=== PATIENT | female | born 1975 | race Caucasian/White ===

== ENCOUNTER 2024-12-24 03:30 | Inpatient (IN) | payer BC ==
[2024-12-24 04:31] LABS: #Basophils 0.06 10x3/uL (0.0-0.2); #Eosinophils 0.21 10x3/uL (0.0-0.7); #Monocytes 0.55 10x3/uL (0.11-0.59); #Neutrophils 3.21 10x3/uL (1.40-6.50); %Basophils 0.8 % (0.0-1.0); %Eosinophils 2.9 % (0.0-10.0); %Lymphocytes 43.1 % (21.0-51.0); %Monocytes 7.7 % (0.0-10.0); %Neutrophils 45.1 % (42.0-75.0); Hematocrit 39.1 % (36.0-47.0); Hemoglobin 12.7 g/dL (12.0-16.0); Mean Corpuscular Hemoglobin 28.1 pg (27.0-31.0); Mean Corpuscular Volume 86.5 fL (78.0-98.0); Platelet Count 366 10x3/uL (130-400); Red Blood Cell (RBC) Count 4.52 mill/uL (4.20-5.40); White Blood Cell (WBC) Count 7.14 10x3/uL (4.8-10.8)
[2024-12-24 04:39] LABS: ALT (SGPT) 45 U/L (Less than 34); AST (SGOT) 27 U/L (11-34); Albumin 4.1 g/dL (3.1-4.5); Alkaline Phosphatase 57 U/L (40-110); Anion Gap 13 mmol/L (10-20); BUN (Urea Nitrogen) 10 mg/dL (7.0-18.7); Bilirubin, Total 0.3 mg/dL (0.3-1.2); Calc. Creatinine Clearance 0 mL/min (70-130); Calcium 9.3 mg/dL (7.8-10.44); Carbon Dioxide 20 mmol/L (22-29); Chloride 110 mmol/L (98-107); Globulin 3.3 g/dL (2.4-3.5); Glucose 84 mg/dL (70-105); Lipase 68 U/L (8-78); Potassium 4.1 mmol/L (3.5-5.1); Sodium 139 mmol/L (136-145)
[2024-12-24 06:51] LABS: Bacteria/HPF None Seen HPF (None Seen); CAUTI Indications for Culture Acute Hematuria; Glucose, Urine (Dipstick) Normal (Negative); Leukocyte 25 Leu/uL (Negative); Protein, Urine (Dipstick) Negative (Neg-Trace); RBC/HPF 0-3 HPF (0-3); Specific Gravity, Urine 1.028 (1.002-1.036); WBC/HPF 0-3 HPF (0-3)
[2024-12-24 07:04] LABS: Urine Culture Reflex No No
[2024-12-24] MEDS ORDERED: Lidocaine Viscous Sol 2% 15 ml UD Cup ONE (07:28)
[2024-12-24] MEDS ORDERED: Benzocaine 20% Spray 60 ML CAN ONE (07:28)
[2024-12-24] MEDS ORDERED: Ketorolac Tromethamine 30 MG (1 mL) VIAL ONE (09:33)
[2024-12-24] MEDS ORDERED: Ondansetron PF 4 MG/2 ML Vial IVP PRN (10:11)
[2024-12-24 10:40] LABS: Magnesium 2.0 mg/dL (1.6-2.6)
[2024-12-24] MEDS ORDERED: Iopamidol-370 76% 500 ML MDV (1 ML CHARGE) ONE (11:54)
[2024-12-24 12:56] VITALS: BMI 23.0
[2024-12-24] MEDS: Ketorolac Tromethamine 30 MG (1 mL) VIAL ONE (13:11)
[2024-12-24] MEDS: D5 1/2 NS w/20 mEq KCL 1,000 ML IV SCH (14:49)
[2024-12-24] MEDS ORDERED: Ketorolac Tromethamine 30 MG (1 mL) VIAL IVP PRN (15:36)
[2024-12-24] MEDS: Famotidine/PF 20 mg/2ml Vial SLOW IVP SCH (21:31)
[2024-12-25 07:08] LABS: #Basophils 0.03 10x3/uL (0.0-0.2); #Eosinophils 0.23 10x3/uL (0.0-0.7); #Monocytes 0.35 10x3/uL (0.11-0.59); #Neutrophils 2.27 10x3/uL (1.40-6.50); %Basophils 0.6 % (0.0-1.0); %Eosinophils 4.8 % (0.0-10.0); %Lymphocytes 40.3 % (21.0-51.0); %Monocytes 7.2 % (0.0-10.0); %Neutrophils 46.9 % (42.0-75.0); Hematocrit 36.7 % (36.0-47.0); Hemoglobin 11.3 g/dL (12.0-16.0); Mean Corpuscular Hemoglobin 28.0 pg (27.0-31.0); Mean Corpuscular Volume 90.8 fL (78.0-98.0); Platelet Count 256 10x3/uL (130-400); Red Blood Cell (RBC) Count 4.04 mill/uL (4.20-5.40); White Blood Cell (WBC) Count 4.84 10x3/uL (4.8-10.8)
[2024-12-25 07:44] LABS: Anion Gap 9 mmol/L (10-20); BUN (Urea Nitrogen) 7 mg/dL (7.0-18.7); Calc. Creatinine Clearance 68 mL/min (70-130); Calcium 8.5 mg/dL (7.8-10.44); Carbon Dioxide 18 mmol/L (22-29); Chloride 114 mmol/L (98-107); Glucose 76 mg/dL (70-105); Potassium 4.1 mmol/L (3.5-5.1); Sodium 137 mmol/L (136-145)
[2024-12-25] MEDS ORDERED: MD-Gastroview 120 ML BOT ONE (13:21)
[2024-12-25] MEDS: cefTRIAXone\\ROCEPHIN 1 GM in Sodium Chloride 0.9% 100 ML IVPB SCH (20:17)
[2024-12-25] MEDS: cefTRIAXone (ROCEPHIN) 1 GM VIAL ONE (20:25)
[2024-12-26 06:36] LABS: #Basophils 0.03 10x3/uL (0.0-0.2); #Eosinophils 0.28 10x3/uL (0.0-0.7); #Monocytes 0.36 10x3/uL (0.11-0.59); #Neutrophils 2.23 10x3/uL (1.40-6.50); %Basophils 0.6 % (0.0-1.0); %Eosinophils 5.6 % (0.0-10.0); %Lymphocytes 41.6 % (21.0-51.0); %Monocytes 7.2 % (0.0-10.0); %Neutrophils 44.8 % (42.0-75.0); Hematocrit 38.7 % (36.0-47.0); Hemoglobin 12.2 g/dL (12.0-16.0); Mean Corpuscular Hemoglobin 28.2 pg (27.0-31.0); Mean Corpuscular Volume 89.4 fL (78.0-98.0); Platelet Count 267 10x3/uL (130-400); Red Blood Cell (RBC) Count 4.33 mill/uL (4.20-5.40); White Blood Cell (WBC) Count 4.98 10x3/uL (4.8-10.8)
[2024-12-26 07:04] LABS: Anion Gap 15 mmol/L (10-20); BUN (Urea Nitrogen) 6 mg/dL (7.0-18.7); Calc. Creatinine Clearance 71 mL/min (70-130); Calcium 8.8 mg/dL (7.8-10.44); Carbon Dioxide 16 mmol/L (22-29); Chloride 111 mmol/L (98-107); Glucose 74 mg/dL (70-105); Potassium 4.2 mmol/L (3.5-5.1); Sodium 138 mmol/L (136-145)
[2024-12-26 08:43] VITALS: BP 95/65; TEMP 97.6
[2024-12-26] MEDS: Citalopram 20 MG TAB PO SCH (09:26)
== END 2024-12-26 17:33 | disposition home or self-care (01) | DRG 394 ==
LOC: ERS 03:30 → SURG A 10:18
PROVIDERS: ADMIT Surgery; ATTEND Surgery
DX: K94.13 Enterostomy malfunction (principal); N39.0 Urinary tract infection, site not specified; F32.A Depression, unspecified; Z98.890 Other specified postprocedural states; Z88.8 Allergy status to other drugs, medicaments and biological substances; K21.9 Gastro-esophageal reflux disease without esophagitis; R52 Pain, unspecified
CPT/HCPCS: 36415; 44500; 74018; 74177; 74250; 74340; 80048; 80053; 81001; 83690; 83735; 84100; 85025; 96365; 96375; 96376; J0696; J1308; J1885; J2060; J2270; J2272; J2550; J3010; J3480; Q9963; Q9967